=== PATIENT | female | born 1945 | race African-American/Black ===

== ENCOUNTER 2018-07-11 20:17 | Inpatient (IN) | payer MEDICARE ==
--- NOTE | 2018-07-11 22:04 | ER Document Report ---
ED Medical Screen (RME) - General Chief Complaint: Feet Swelling Stated Complaint: FEET SWELLING/COUGH Time Seen by Provider: 07/11/18 22:00 Primary Care Provider: ADRIAN TEMPLETON MD [Primary Care Provider] - Follow up as needed Notes: Patient is a 73-year-old female presents to the emergency department for bilateral feet swelling and shortness of breath for the last 3 months. Patient states she gets more more winded as she moves around her house over the last 3 months. Patient is also complaining of a generalized cough and congestion. Patient states she is noticed bilateral lower extremities were swollen for the last 2 days. Patient is denying any pain in her calf or lower extremities just that they are swollen. Patient denies any history of congestive heart failure GENERAL: Alert, interacts well. No acute distress. EXTREMITIES: Moves all 4 extremities spontaneously. normal radial and dorsalis pedis pulses bilaterally. No cyanosis. Bilateral pitting edema noted mid calf. I have greeted and performed a rapid initial assessment of this patient. A comprehensive ED assessment and evaluation of the patient, analysis of test results and completion of the medical decision making process will be conducted by additional ED providers. This medical record was dictated with voice recognizing software. There may be grammatical, syntax errors that are unintended. TRAVEL OUTSIDE OF THE [place] IN LAST 30 DAYS: No - Related Data Allergies/Adverse Reactions: Penicillins Allergy (Verified 07/11/18 21:53) Past Medical History - Social History Frequency of alcohol use: None Drug Abuse: None - Past Medical History Cardiac Medical History: Reports: Hx Hypertension Denies: Hx Coronary Artery Disease, Hx Heart Attack Pulmonary Medical History: Denies: Hx Asthma, Hx Bronchitis, Hx COPD, Hx Pneumonia Neurological Medical History: Denies: Hx Cerebrovascular Accident, Hx Seizures Renal/ Medical History: Denies: Hx Peritoneal Dialysis Musculoskeltal Medical History: Reports Hx Arthritis Past Surgical History: Denies: Hx Pacemaker - Immunizations Hx Diphtheria, Pertussis, Tetanus Vaccination: No - unsure Physical Exam - Vital signs Vitals: Temp Pulse Resp BP Pulse Ox 97.9 F 111 H 24 H 154/98 H 100 07/11/18 20:45 07/11/18 20:45 07/11/18 20:45 07/11/18 20:45 07/11/18 20:45 Course - Vital Signs Vital signs: Temp Pulse Resp BP Pulse Ox 97.9 F 111 H 24 H 154/98 H 100 07/11/18 20:45 07/11/18 20:45 07/11/18 20:45 07/11/18 20:45 07/11/18 20:45 Doctor's Discharge - Discharge Referrals: ADRIAN TEMPLETON MD [Primary Care Provider] - Follow up as needed
--- NOTE | 2018-07-11 22:51 | RADIOLOGY REPORT (SQ) ---
EXAM DESCRIPTION: XR CHEST 2 VIEWS COMPLETED DATE/TME: 07/11/2018 22:02 CLINICAL HISTORY: SOB COMPARISON: None FINDINGS: Blunted right costophrenic angle and increased opacity at the right lower lung could be secondary to combination of pleural fluid and atelectasis. Indistinctness of pulmonary vessels and reticular opacities compatible with pulmonary edema. There is also mild blunting of the left costophrenic angle. There is scoliosis of the thoracolumbar spine. Cardiac silhouette is within normal limits. There is no pneumothorax. IMPRESSION: Above findings are compatible with cardiac decompensation/pulmonary edema. Recommend follow-up.
[2018-07-11 23:36] LABS: ABSOLUTE EOSINOPHILS # (AUTO) 0.1 10^3/uL (0.0-0.6); ABSOLUTE LYMPHOCYTES (AUTO) 1.7 10^3/uL (0.5-4.7); ABSOLUTE MONOCYTES (AUTO) 0.2 10^3/uL (0.1-1.4); ABSOLUTE NEUT (AUTO) 3.9 10^3/uL (1.7-8.2); BASOPHILS % (AUTO) 0.4 % (0-2); EOSINOPHILS % (AUTO) 1.3 % (0-6); HEMATOCRIT 37.1 % (36.0-47.0); HEMOGLOBIN 11.7 g/dL (12.0-15.5); LYMPHOCYTES % (AUTO) 28.3 % (13-45); MEAN CORPUSCULAR HEMOGLOBIN 24.8 pg (27.0-33.4); MEAN CORPUSCULAR HGB CONC 31.6 g/dL (32.0-36.0); MEAN CORPUSCULAR VOLUME 79 fl (80-97); PLATELET COUNT 282 10^3/uL (150-450); RED BLOOD COUNT 4.72 10^6/uL (3.72-5.28); RED CELL DISTRIBUTION WIDTH 15.4 % (11.5-14.0); TOTAL CELLS COUNTED % (AUTO) 100 %
[2018-07-11 23:45] LABS: APPEARANCE,URINE SLIGHTLY-CLOUDY; BILIRUBIN,URINE NEGATIVE (NEGATIVE); COLOR,URINE AMBER; GLUCOSE, URINE NEGATIVE (NEGATIVE); KETONES,URINE TRACE mg/dL (NEGATIVE); LEUKOCYTE ESTERASE,URINE LARGE (NEGATIVE); NITRITE,URINE NEGATIVE (NEGATIVE); PROTEIN,URINE 100 mg/dL (NEGATIVE)
[2018-07-12 00:03] LABS: ALANINE AMINOTRANSFERASE 55 U/L (9-52); ALBUMIN 3.9 g/dL (3.5-5.0); ALKALINE PHOSPHATASE 95 U/L (38-126); ANION GAP 11 (5-19); ASPARTATE AMINO TRANSFERASE 46 U/L (14-36); BILIRUBIN,DIRECT 0.4 mg/dL (0.0-0.4); BLOOD UREA NITROGEN 20 mg/dL (7-20); CALCIUM 9.9 mg/dL (8.4-10.2); CARBON DIOXIDE 27 mmol/L (22-30); CHLORIDE 106 mmol/L (98-107); GLUCOSE 129 mg/dL (75-110); POTASSIUM 3.3 mmol/L (3.6-5.0); SODIUM 144.2 mmol/L (137-145)
[2018-07-12 00:15] LABS: TROPONIN I 0.018 ng/mL
[2018-07-12] MEDS ORDERED: FUROSEMIDE INJ/PF 40 MG/4 ML SDV IV ONE (03:29)
--- NOTE | 2018-07-12 03:34 | ER Document Report ---
ED General - General Chief Complaint: Feet Swelling Stated Complaint: FEET SWELLING/COUGH Time Seen by Provider: 07/11/18 22:00 Notes: Patient is a 73-year-old female presents to the emergency department for bilateral feet swelling and shortness of breath for the last 3 months. Patient states she gets more more winded as she moves around her house over the last 3 months. Patient is also complaining of a generalized cough and congestion. P atient states she is noticed bilateral lower extremities were swollen for the last 2 days. Patient is denying any pain in her calf or lower extremities just that they are swollen. Patient denies any history of congestive heart failure Patient states she has not taken her Diovan or HCTZ for the last 4 months because "I did not feel like it." Past medical history: Hypertension Medications: Diovan, HCTZ. Allergies: Penicillin Surgical history: None TRAVEL OUTSIDE OF THE [place] IN LAST 30 DAYS: No - Related Data Allergies/Adverse Reactions: Penicillins Allergy (Verified 07/11/18 21:53) Past Medical History - General Information source: Patient - Social History Smoking Status: Never Smoker Frequency of alcohol use: None Drug Abuse: None Family History: Reviewed & Not Pertinent Patient has suicidal ideation: No Patient has homicidal ideation: No - Past Medical History Cardiac Medical History: Reports: Hx Hypertension Denies: Hx Coronary Artery Disease, Hx Heart Attack Pulmonary Medical History: Denies: Hx Asthma, Hx Bronchitis, Hx COPD, Hx Pneumonia Neurological Medical History: Denies: Hx Cerebrovascular Accident, Hx Seizures Renal/ Medical History: Denies: Hx Peritoneal Dialysis Musculoskeletal Medical History: Reports Hx Arthritis Past Surgical History: Denies: Hx Pacemaker - Immunizations Hx Diphtheria, Pertussis, Tetanus Vaccination: No - unsure Review of Systems - Review of Systems Constitutional: denies: Fever EENT: No symptoms reported Cardiovascular: See HPI. denies: Chest pain, Palpitations Respiratory: See HPI Gastrointestinal: No symptoms reported Genitourinary: No symptoms reported Female Genitourinary: No symptoms reported Musculoskeletal: See HPI Skin: See HPI Neurological/Psychological: No symptoms reported Physical Exam - Vital signs Vitals: Temp Pulse Resp BP Pulse Ox 97.9 F 111 H 24 H 154/98 H 100 07/11/18 20:45 07/11/18 20:45 07/11/18 20:45 07/11/18 20:45 07/11/18 20:45 - Notes Notes: GENERAL: Alert, interacts well. No acute distress. HEAD: Normocephalic, atraumatic. EYES: Pupils equal, round, and reactive to light. Extraocular movements intact. ENT: Oral mucosa moist, tongue midline. NECK: Full range of motion. Supple. Trachea midline. LUNGS: Clear to auscultation bilaterally apices, no wheezes or rhonchi. Rales heard bilateral bases. At rest no respiratory distress. HEART: Regular rate and rhythm. No murmur ABDOMEN: Soft, non-tender. Non-distended. Bowel sounds present in all 4 quadrants. EXTREMITIES: Moves all 4 extremities spontaneously, normal radial and dorsalis pedis pulses bilaterally. No cyanosis. +2 pitting edema noted bilateral lower extremities to mid calf BACK: no cervical, thoracic, lumbar midline tenderness. No saddle anesthesia, normal distal neurovascular exam. NEUROLOGICAL: Alert and oriented x3. Normal speech. cranial nerves II through XII grossly intact PSYCH: Normal affect, normal mood. SKIN: Warm, dry, normal turgor. Course - Re-evaluation Re-evalutation: Chest X-Ray 07/11/18 22:02 IMPRESSION: Above findings are compatible with cardiac decompensation/pulmonary edema. Recommend follow-up. Chest/Abdomen CTA 07/12/18 03:38 IMPRESSION: No aortic dissection or aneurysm. No pulmonary embolus. Pleural effusions with cardiomegaly and pulmonary edema. Patient's labs do show a BNP of 5300 with a potassium of 3.3. Patient's chest x -ray as above. 07/12/18 03:[address] Meat [address]. Trent is on-call for Dr. Krueger she is currently paging him. Awaiting his return call to admit the patient. Dr. Trent returns phone call and is requesting a repeat troponin and a CTA. He is requesting to call him back after these test results. 07/12/18 05:27 Patient's troponin is downtrending from 0.018 to 0.012. Patient CTA shows no signs of pulmonary embolus or aneurysm. Discussed this again with Dr. Trent who is requesting oral potassium replacement at this time. He is requesting patient be admitted to [facility]. Patient stable for admission, new onset congestive heart failure. 07/12/18 06:55 EKG shows a sinus tachycardia at 111, QTc 468, LVH, no ST segment elevations or depressions noted. - Vital Signs Vital signs: Temp Pulse Resp BP Pulse Ox 98.1 F 111 H 25 H 145/94 H 96 07/12/18 03:00 07/11/18 20:45 07/12/18 05:00 07/12/18 04:01 07/12/18 04:01 - Laboratory Result Diagrams: 07/11/18 23:04 07/11/18 23:04 Laboratory results interpreted by me: 07/11/18 07/11/18 07/11/18 23:04 23:04 23:04 Hgb 11.7 L MCV 79 L MCH 24.8 L MCHC 31.6 L RDW 15.4 H D-Dimer Potassium 3.3 L Glucose 129 H Magnesium AST 46 H ALT 55 H NT-Pro-B Natriuret Pep 5300 H Urine Protein Urine Ketones Urine Urobilinogen Ur Leukocyte Esterase 07/11/18 07/11/18 07/11/18 23:04 23:04 23:04 Hgb MCV MCH MCHC RDW D-Dimer 0.85 H Potassium Glucose Magnesium 2.4 H AST ALT NT-Pro-B Natriuret Pep Urine Protein 100 H Urine Ketones TRACE H Urine Urobilinogen 4.0 H Ur Leukocyte Esterase LARGE H Discharge - Discharge Clinical Impression: Congestive heart failure Qualifiers: Heart failure type: unspecified Heart failure chronicity: acute Qualified Code(s): I50.9 - Heart failure, unspecified Condition: Good Disposition: ADMITTED INPATIENT Admitting Provider: [facility] Unit Admitted: [facility]
--- NOTE | 2018-07-12 05:15 | RADIOLOGY REPORT (SQ) ---
CLINICAL HISTORY: SOB X 3MONTHS / BLE SWELLING X 3DAYS / HTN COMPARISON: None. TECHNIQUE: CT CHEST ANGIOGRAPHY WITHOUT THEN WITH IV CONTRAST on 07/12/2018 3:38 AM CDT. MIPS reconstructions were generated. This exam was performed according to our departmental dose-optimization program, which includes automated exposure control, adjustment of the mA and/or kV according to patient size and/or use of iterative reconstruction technique. MIP images were generated. FINDINGS: Thoracic aorta is normal in course and caliber without aneurysm or dissection. Pulmonary arteries are adequately opacified without acute or chronic filling defects. The heart is mildly enlarged. There is no pericardial effusion. Intrathoracic lymph nodes are not enlarged. There is a small left pleural effusion. There is a moderate right pleural effusion. Central airways are patent. There is interlobular septal thickening with patchy groundglass opacities throughout both lungs. There are no acute abnormalities within the limited images of the upper abdomen. There are no acute osseous findings. No suspicious bony lesions. IMPRESSION: No aortic dissection or aneurysm. No pulmonary embolus. Pleural effusions with cardiomegaly and pulmonary edema.
[2018-07-12] MEDS ORDERED: POTASSIUM CHLORIDE 10 MEQ CAPSULE.ER PO ONE (05:25)
[2018-07-12] MEDS ORDERED: ACETAMINOPHEN 325 MG TABLET PO PRN (07:03)
[2018-07-12] MEDS: ENOXAPARIN SODIUM INJ 40 MG/0.4 ML DISP.SYRIN SUBCUT SCH (09:13)
--- NOTE | 2018-07-12 10:13 | PDOC H&P ---
History of Present Illness Admission Date/PCP: 07/12/18 06:18 CHERRI BUTCHER MD Patient complains of: Feet swelling and shortness of the breath History of Present Illness: ALBINA FRANK is a 73 year old female This is a 73-year-old female patient of Dr. Sharp with history of hypertension's noncompliance not taking the medications put him almost 2 months came to the emergency department with increasing shortness of breath patient laid down since last 1 or 2 weeks and also increasing the leg swellings Patient is denied any history of heart disease Patients denied any other medical problems except for high blood pressure In the emergency department patient initial work-up was all stable except the NT BNP was 5000 Patient's potassium was low patient underwent for the CT angiogram which did not show any acute PE but supposed to pulmonary edema cardiomegaly Patient was given IV Lasix When I saw the patient's feel better patient denied any chest pain Past Medical History Cardiac Medical History: Reports: Hypertension Denies: Coronary Artery Disease, Myocardial Infarction Pulmonary Medical History: Denies: Asthma, Bronchitis, Chronic Obstructive Pulmonary Disease (COPD), Pneumonia Neurological Medical History: Denies: Seizures Musculoskeltal Medical History: Reports: Arthritis Hematology: Denies: Anemia Past Surgical History Past Surgical History: Denies: Pacemaker Social History Smoking Status: Never Smoker Frequency of Alcohol Use: None Hx Recreational Drug Use: No Drugs: None Hx Prescription Drug Abuse: No - Advance Directive Resuscitation Status: Full Code Family History Family History: Reviewed & Not Pertinent Parental Family History Reviewed: Yes Children Family History Reviewed: Yes Sibling(s) Family History Reviewed.: Yes Medication/Allergy Home Medications: Diovan Hct 320-25 mg Tablet PO DAILY 03/06/11 Pravastatin Sodium PO DAILY 03/06/11 Allergies/Adverse Reactions: Penicillins Allergy (Verified 07/11/18 21:53) Review of Systems Constitutional: ABSENT: chills, fever(s), headache(s), weight gain, weight loss Eyes: ABSENT: visual disturbances Ears: ABSENT: hearing changes Cardiovascular: ABSENT: chest pain, dyspnea on exertion, edema, orthropnea, palpitations Respiratory: ABSENT: cough, hemoptysis Gastrointestinal: ABSENT: abdominal pain, constipation, diarrhea, hematemesis, hematochezia, nausea, vomiting Genitourinary: ABSENT: dysuria, hematuria Musculoskeletal: ABSENT: joint swelling Integumentary: ABSENT: rash, wounds Neurological: ABSENT: abnormal gait, abnormal speech, confusion, dizziness, focal weakness, syncope Psychiatric: ABSENT: anxiety, depression, homidical ideation, suicidal ideation Endocrine: ABSENT: cold intolerance, heat intolerance, menstrual abnormalities, polydipsia, polyuria Hematologic/Lymphatic: ABSENT: easy bleeding, easy bruising, lymphadenopathy Physical Exam Vital Signs: Temp Pulse Resp BP Pulse Ox 97.4 F 111 H 22 H 152/98 H 98 07/12/18 07:46 07/12/18 07:46 07/12/18 07:46 07/12/18 07:46 07/12/18 07:46 Intake & Output 07/11/18 07/12/18 07/13/18 06:59 06:59 06:59 Weight 78.1 kg 76.6 kg General appearance: PRESENT: no acute distress, well-developed, well-nourished Head exam: PRESENT: atraumatic, normocephalic Eye exam: PRESENT: conjunctiva pink, EOMI, PERRLA. ABSENT: scleral icterus Ear exam: PRESENT: normal external ear exam Mouth exam: PRESENT: moist, tongue midline Neck exam: PRESENT: full ROM. ABSENT: carotid bruit, JVD, lymphadenopathy, thyromegaly Respiratory exam: PRESENT: decreased breath sounds Cardiovascular exam: PRESENT: RRR. ABSENT: diastolic murmur, rubs, systolic murmur Vascular exam: PRESENT: normal capillary refill GI/Abdominal exam: PRESENT: normal bowel sounds, soft. ABSENT: distended, guarding, mass, organolmegaly, rebound, tenderness Rectal exam: PRESENT: deferred Extremities exam: PRESENT: pedal edema Musculoskeletal exam: PRESENT: ambulatory Neurological exam: PRESENT: alert, awake, oriented to person, oriented to place, oriented to time, oriented to situation, CN II-XII grossly intact. ABSENT: motor sensory deficit Psychiatric exam: PRESENT: appropriate affect, normal mood. ABSENT: homicidal ideation, suicidal ideation Skin exam: PRESENT: dry, intact, warm. ABSENT: cyanosis, rash Results Laboratory Results: 07/11/18 23:04 07/11/18 23:04 07/11/18 07/11/18 07/11/18 23:04 23:04 23:04 WBC 6.0 RBC 4.72 Hgb 11.7 L Hct 37.1 MCV 79 L MCH 24.8 L MCHC 31.6 L RDW 15.4 H Plt Count 282 Seg Neutrophils % 66.0 Lymphocytes % 28.3 Monocytes % 4.0 Eosinophils % 1.3 Basophils % 0.4 Absolute Neutrophils 3.9 Absolute Lymphocytes 1.7 Absolute Monocytes 0.2 Absolute Eosinophils 0.1 Absolute Basophils 0.0 Sodium 144.2 Potassium 3.3 L Chloride 106 Carbon Dioxide 27 Anion Gap 11 BUN 20 Creatinine 0.68 Est GFR ( Amer) > 60 Est GFR (Non-Af Amer) > 60 Glucose 129 H Calcium 9.9 Magnesium Total Bilirubin 1.0 AST 46 H ALT 55 H Alkaline Phosphatase 95 Total Protein 7.0 Albumin 3.9 Urine Color FRED Urine Appearance SLIGHTLY-CLOUDY Urine pH 5.0 Ur Specific [place] 1.030 Urine Protein 100 H Urine Glucose (UA) NEGATIVE Urine Ketones TRACE H Urine Blood NEGATIVE Urine Nitrite NEGATIVE Ur Leukocyte Esterase LARGE H Urine WBC (Auto) 7 Urine RBC (Auto) 2 07/11/18 23:04 WBC RBC Hgb Hct MCV MCH MCHC RDW Plt Count Seg Neutrophils % Lymphocytes % Monocytes % Eosinophils % Basophils % Absolute Neutrophils Absolute Lymphocytes Absolute Monocytes Absolute Eosinophils Absolute Basophils Sodium Potassium Chloride Carbon Dioxide Anion Gap BUN Creatinine Est GFR ( Amer) Est GFR (Non-Af Amer) Glucose Calcium Magnesium 2.4 H Total Bilirubin AST ALT Alkaline Phosphatase Total Protein Albumin Urine Color Urine Appearance Urine pH Ur Specific [place] Urine Protein Urine Glucose (UA) Urine Ketones Urine Blood Urine Nitrite Ur Leukocyte Esterase Urine WBC (Auto) Urine RBC (Auto) 07/11/18 07/12/18 23:04 04:05 Troponin I 0.018 0.012 NT-Pro-B Natriuret Pep 5300 H Impressions: Chest X-Ray 07/11/18 22:02 IMPRESSION: Above findings are compatible with cardiac decompensation/pulmonary edema. Recommend follow-up. Chest/Abdomen CTA 07/12/18 03:38 IMPRESSION: No aortic dissection or aneurysm. No pulmonary embolus. Pleural effusions with cardiomegaly and pulmonary edema. Assessment & Plan - Diagnosis (1) Congestive heart failure Qualifiers: Heart failure type: unspecified Heart failure chronicity: acute Qualified Code(s): I50.9 - Heart failure, unspecified Is this a current diagnosis for this admission?: Yes Plan: Continues to IV Lasix This is a new onset of the heart failure Consult the cardiology (2) Hypertension Qualifiers: Hypertension type: unspecified Qualified Code(s): I10 - Essential (primary) hypertension Is this a current diagnosis for this admission?: Yes Plan: Continues to current medications (3) Pulmonary edema Qualifiers: Chronicity: acute Qualified Code(s): J81.0 - Acute pulmonary edema Is this a current diagnosis for this admission?: Yes Plan: Patient CT angiogram is negative for PE Most likely her heart failure due to the uncontrolled hypertension's and noncompliance (4) Lower extremity edema Is this a current diagnosis for this admission?: Yes Plan: Due to the above conditions we also get the ultrasound for the lower extremities - Time Time Spent: 50 to 70 Minutes Medications reviewed and adjusted accordingly: Yes Anticipated discharge: Home Within: Other - Inpatient Certification Based on my medical assessment, after consideration of the patient's comorbid ities, presenting symptoms, or acuity I expect that the services needed warrant INPATIENT care.: Yes I certify that my determination is in accordance with my understanding of Medicare's requirements for reasonable and necessary INPATIENT services [42 CFR 412.3e].: Yes Medical Necessity: Need Close Monitoring Due to Risk of Patient Decompensation Post Hospital Care: D/C Appeals Assistant Documentation - Plan Summary Plan Summary: Continues to current medications
--- NOTE | 2018-07-12 11:16 | EKG REPORT ---
SEVERITY:- ABNORMAL ECG - SINUS TACHYCARDIA PROBABLE LVH WITH SECONDARY REPOL ABNRM : Confirmed by: Ioana Palacios 12-Jul-2018 11:15:56
--- NOTE | 2018-07-12 11:51 | RADIOLOGY REPORT (SQ) ---
EXAM DESCRIPTION: VENOUS BILATERAL LOWER COMPLETED DATE/TIME: 07/12/2018 11:25 am REASON FOR STUDY: edema r/o DVT COMPARISON: None. TECHNIQUE: Dynamic and static dotosn scale and color images acquired of both lower extremity venous sy stems. Selected spectral images acquired with additional compression and augmentation maneuvers. Imag es stored on PACS. LIMITATIONS: None. FINDINGS: RIGHT LEG COMMON FEMORAL AND FEMORAL: Normal phasicity, compression and augmentation. No visualized echogenic m aterial on dotson scale. No defects on color images. POPLITEAL: Normal compression and augmentation. No visualized echogenic material on dotson scale. No de fects on color images. CALF VESSELS: Normal compression and augmentation. No visualized echogenic material on dotson scale. No defects on color image. GSV AND SSV: Normal compression. No visualized echogenic material on dotson scale. No defects on color images. ANY DEEP VENOUS INSUFFICIENCY: Not evaluated. ANY EVIDENCE OF POPLITEAL CYST: No. OTHER: No other significant finding. LEFT LEG COMMON FEMORAL AND FEMORAL: Normal phasicity, compression and augmentation. No visualized echogenic m aterial on dotson scale. No defects on color images. POPLITEAL: Normal compression and augmentation. No visualized echogenic material on dotson scale. No de fects on color images. CALF VESSELS: Normal compression and augmentation. No visualized echogenic material on dotson scale. No defects on color images. GSV AND SSV: Normal compression. No visualized echogenic material on dotson scale. No defects on color images. ANY DEEP VENOUS INSUFFICIENCY: Not evaluated. ANY EVIDENCE POPLITEAL CYST: 4.5 cm popliteal cyst. OTHER: No other significant finding. IMPRESSION: NO EVIDENCE DVT OR SVT IN EITHER LEG. 4.5 cm popliteal cyst. TECHNICAL DOCUMENTATION: JOB ID: [id number] All Rights Reserved Reading location - IP/workstation name: [email or web address]
[2018-07-12 12:36] LABS: CREATINE KINASE MB 0.64 ng/mL (<4.55); TROPONIN I 0.015 ng/mL
[2018-07-12] MEDS: METOPROLOL SUCCINATE 25 MG TAB.SR.24H PO SCH ×2 (13:09→21:10)
[2018-07-12] MEDS: FUROSEMIDE INJ/PF 20 MG/2 ML SDV IV SCH ×2 (14:04→21:10)
[2018-07-12] MEDS: VALSARTAN 80 MG TABLET PO SCH ×2 (14:04→21:10)
--- NOTE | 2018-07-12 17:21 | PDOC CONSULTATION ---
Consultation-Blank Consultation: CARDIOLOGY CONSULTATION by Dr. Norma Hernandez on 07/12/2018. Patient seen at 11 AM. 60 minutes spent on this patient with more than 50% of time spent in direct patient care. REASON FOR CONSULTATION: Patient with leg edema shortness of breath PND and orthopnea symptoms. CONSULT REQUESTING PHYSICIAN: Dr. Melissa Trent HISTORY PRESENT ILLNESS: Patient is a pleasant 73-year-old Afro-[place]i female with a known history of hypertension, states that she stopped her Diovan and for her blood pressure about 4 months ago. The patient states that in the past she is to have some mild leg edema which would occur mostly when she is ambulatory into is the end of the day and the edema would subside when she woke up in the morning and she would find that the edema had completely resolved. But since the past 1 week the patient has been having episodes of orthopnea, episodes of PND and dyspnea on exertion to rest shortness of breath. She has also noticed increasing leg edema. She denies palpitations or chest pain or discomfort. She has no TIA CVA symptoms. There is no dizziness or near syncope or syncopal episodes. She also states that she has been told that she snores in the sleep, but there is no corroborating witnessed to see if the patient did stop breathing in her sleep. She but she states that she does have frequent nightmares, and also after a night's sleep she in the morning does not feel rested. She most likely has sleep apnea, and has not been diagnosed. PAST MEDICAL HISTORY: Is positive for hypertension. Negative for diabetes mellitus or thyroid disease. There is no history of asthma or COPD. There is no history of a pulmonary embolism. The patient has symptoms suggestive of sleep apnea, but has not had a sleep study. She has no history of TIA or CVA. There is no history of chronic kidney disease. There is no history of anxiety or depression. PAST SURGICAL HISTORY: She has had no surgeries done. ALLERGIES: She is allergic to penicillin. FAMILY HISTORY: Is positive for hypertension. Negative for coronary artery disease. DISPOSITION: The patient is a full code. is her surrogate healthcare decision maker. SOCIAL HISTORY: The patient does not smoke, has never smoked, and is no history of EtOH abuse. REVIEW SYSTEMS: CONSTITUTIONAL: Denies any fever chills or rigors. Complains of generalized fatigue and generalized weakness since the last 1 week. HEAD: No history of headaches or head injury. EYES: No history of amblyopia diplopia. No history of amaurosis fugax. EARS: No severe hearing loss. No history of tinnitus. No history of recurrent ear infections. NOSE: No history of hayfever. No history of nosebleeds. No history of nasal polyps. MOUTH: No history of altered taste sensation. No bleeding from the gums. THROAT: No history of odynophagia or dysphagia. SKIN: No history of pruritus. No history of yellowish discoloration of the skin. No history of eczema. NECK: No history of swelling in the neck. No neck pain. LUNGS: No history of cough or sputum production or wheezing. No history of asthma or COPD. Symptoms suggestive of sleep apnea as mentioned earlier. The patient has yet to have a sleep study, but this will be arranged as an outpatient. Although no history of her pulmonary embolism. No history of pleuritic chest pain no history of hemoptysis. CARDIAC: History of hypertension patient is not taking blood pressure medication for 4 months. No history of VA. No history of angina. No history of coronary artery disease. No prior history of congestive heart failure. The patient's description of 1 week symptoms are suggestive of biventricular failure. There is no palpitations or syncope. There is no history of rheumatic fever. There is no history of coronary heart disease. ENDOCRINE: No history of diabetes mellitus or thyroid disease. No history of polydipsia polyuria. No history of heat or cold intolerance. No history of hirsutism. No history of excessive sweating. RENAL: No history of chronic kidney disease. No symptoms a UTI. No history of hematuria pyuria or dysuria. MUSCULOSKELETAL: Denies arthritis or collagen vascular disease. GI: Denies any history of GERD or GI bleed. No history of altered bowel movements. No history of fatty food intolerance. No history of jaundice or cirrhosis. No abdominal pain. PATTERN PUNCHER: No history of TIA CVA. No history of headaches migraines or seizures. PSYCHIATRIC: No history of anxiety depression. No history of homicidal ideation. No history of suicidal ideation. METABOLIC: History of obesity. No history of gout. No history of hyperlipidemia, [her lipid status has not been checked in some while.]. VASCULAR: NO HISTORY OF CALF OR BUTTOCK CLAUDICATION. NO HISTORY OF DVT. HEMATOLOGICAL: NO HISTORY OF SICKLE CELL ANEMIA. NO HISTORY OF ANEMIA. NO HISTORY OF HEMATOLOGICAL DISORDERS. NO HISTORY OF BLOOD DYSCRASIAS. NO HISTORY OF BLEEDING DIATHESIS OR CLOTTING DISORDERS. PHYSICAL EXAMINATION: The patient is slightly overweight. At present in no acute distress although she has orthopnea. She is well-groomed. Selected Entries 07/12/18 07/12/18 07:46 11:08 Temperature 97.4 F 97.9 F Temperature Oral Oral Source Pulse Rate 111 H 103 H Respiratory 22 H 21 H Rate Blood Pressure 152/98 H 140/91 H Blood Pressure 116 107 Mean BP Location Left Arm Right Arm BP Position Supine Supine O2 Sat by Pulse 98 96 Oximetry Oxygen Delivery Room Air Room Air Method HEAD: Is atraumatic normocephalic. EYES: Pupils equal round regular reactive to light and accommodation. Extraocular movements are normal. There is no conjunctival pallor. There is no scleral icterus. EARS: Tympanic membranes are not intact. External canals are clear. NOSE: There is no deviated nasal septum. There is no inflammation of the nasal mucous membrane. MOUTH: There is no ulcers in the mouth. There is no bleeding from the gums. Mucous membranes of mouth are moist tongue is moist. THROAT: There is no redness of the oropharynx. There is no exudates. SKIN: There is no skin rashes skin lesions. There is no particular ecchymosis. NECK: Is supple. There is mild JVD present. Carotids are equal there is no bruits. There is no lymphadenopathy. There is no goiter. There is no accessory muscle respiration use. Trachea central. LUNGS: Shows bibasilar fine bilateral rales of CHF. There is no chest wall tenderness. There is no rhonchi or wheezing. HEART: S1-S2 is heard. There is no S3 gallop. There is no S4 gallop. There is murmur of mitral regurgitation and tricuspid regurgitation present. There is no rub. ABDOMEN: Is soft. Nontender. There is no hepatosplenomegaly. Bowel sounds are well heard. There is no tender areas masses. EXTREMITIES: Femorals are diminished there is no femoral bruits leg pulses are diminished. There is no 1+ edema bilaterally. There is no DVT is cellulitis. There is no cyanosis or clubbing. There is no calf tenderness. PATTERN PUNCHER: The patient is conscious awake alert oriented x3 with no focal deficits. PSYCHIATRIC: The patient judgment insight are intact her affect is normal. Current Medications Generic Name Dose Route Start Last Admin Trade Name Fremarcel PRN Reason Stop Dose Admin Acetaminophen 650 mg 07/12/18 07:03 Tylenol 325 Mg Tablet PO 08/11/18 07:02 Q4HP PRN FOR PAIN OR TEMP Enoxaparin Sodium 40 mg 07/12/18 10:00 07/12/18 09:13 Lovenox Inj 40 Mg/0.4 Ml Disp.Syrin SUBCUT 08/11/18 09:59 40 mg DAILY CORNELL Administration Furosemide 20 mg 07/12/18 14:00 07/12/18 14:04 Lasix Inj/Pf 20 Mg/2 Ml Sdv IV 08/11/18 13:59 20 mg Q8 CORNELL Administration Metoprolol Succinate 25 mg 07/12/18 13:00 07/12/18 13:09 Toprol Xl 25 Mg Tab.Sr PO 08/11/18 12:59 25 mg Q12 CORNELL Administration Started by me after consult. Valsartan 80 mg 07/12/18 14:00 07/12/18 14:04 Diovan 80 Mg Tablet PO 08/11/18 13:59 80 mg Q12 CORNELL Administration Started by me after consult Discontinued Medications Generic Name Dose Route Start Last Admin Trade Name Evanq PRN Reason Stop Dose Admin Furosemide 40 mg 07/12/18 03:29 07/12/18 03:59 Lasix Inj/Pf 40 Mg/4 Ml Sdv IV 07/12/18 03:30 40 mg NOW ONE Administration Potassium Chloride 40 meq 07/12/18 05:25 07/12/18 05:40 Klor-Con 10 Meq Capsule Er PO 07/12/18 05:26 40 meq NOW ONE Administration No Home Medications 07/12/18 Labs- Last Values WBC 6.0 10^3/uL (4.0-10.5) 07/11/18 23:04 RBC 4.72 10^6/uL (3.72-5.28) 07/11/18 23:04 Hgb 11.7 g/dL (12.0-15.5) L 07/11/18 23:04 Hct 37.1 % (36.0-47.0) 07/11/18 23:04 MCV 79 fl (80-97) L 07/11/18 23:04 MCH 24.8 pg (27.0-33.4) L 07/11/18 23:04 MCHC 31.6 g/dL (32.0-36.0) L 07/11/18 23:04 RDW 15.4 % (11.5-14.0) H 07/11/18 23:04 Plt Count 282 10^3/uL (150-450) 07/11/18 23:04 Seg Neutrophils % 66.0 % (42-78) 07/11/18 23:04 Lymphocytes % 28.3 % (13-45) 07/11/18 23:04 Monocytes % 4.0 % (3-13) 07/11/18 23:04 Eosinophils % 1.3 % (0-6) 07/11/18 23:04 Basophils % 0.4 % (0-2) 07/11/18 23:04 Absolute Neutrophils 3.9 10^3/uL (1.7-8.2) 07/11/18 23:04 Absolute Lymphocytes 1.7 10^3/uL (0.5-4.7) 07/11/18 23:04 Absolute Monocytes 0.2 10^3/uL (0.1-1.4) 07/11/18 23:04 Absolute Eosinophils 0.1 10^3/uL (0.0-0.6) 07/11/18 23:04 Absolute Basophils 0.0 10^3/uL (0.0-0.2) 07/11/18 23:04 D-Dimer 0.85 ug/mL (0.00-0.50) H 07/11/18 23:04 Sodium 144.2 mmol/L (137-145) 07/11/18 23:04 Potassium 3.3 mmol/L (3.6-5.0) L 07/11/18 23:04 Chloride 106 mmol/L (98-107) 07/11/18 23:04 Carbon Dioxide 27 mmol/L (22-30) 07/11/18 23:04 Anion Gap 11 (5-19) 07/11/18 23:04 BUN 20 mg/dL (7-20) 07/11/18 23:04 Creatinine 0.68 mg/dL (0.52-1.25) 07/11/18 23:04 Est GFR ( Amer) > 60 (>60) 07/11/18 23:04 Est GFR (Non-Af Amer) > 60 (>60) 07/11/18 23:04 Glucose 129 mg/dL (75-110) H 07/11/18 23:04 Calcium 9.9 mg/dL (8.4-10.2) 07/11/18 23:04 Magnesium 2.4 mg/dL (1.6-2.3) H 07/11/18 23:04 Total Bilirubin 1.0 mg/dL (0.2-1.3) 07/11/18 23:04 Direct Bilirubin 0.4 mg/dL (0.0-0.4) 07/11/18 23:04 Neonat Total Bilirubin Not Reportable 07/11/18 23:04 Neonat Direct Bilirubin Not Reportable 07/11/18 23:04 Neonat Indirect Bili Not Reportable 07/11/18 23:04 AST 46 U/L (14-36) H 07/11/18 23:04 ALT 55 U/L (9-52) H 07/11/18 23:04 Alkaline Phosphatase 95 U/L (38-126) 07/11/18 23:04 Creatine Kinase 73 U/L (30-135) 07/12/18 11:42 CK-MB (CK-2) 0.64 ng/mL (<4.55) 07/12/18 11:42 Troponin I 0.015 ng/mL 07/12/18 11:42 NT-Pro-B Natriuret Pep 5300 pg/mL (5-900) H 07/11/18 23:04 Total Protein 7.0 g/dL (6.3-8.2) 07/11/18 23:04 Albumin 3.9 g/dL (3.5-5.0) 07/11/18 23:04 TSH 1.66 uIU/mL (0.47-4.68) 07/12/18 11:42 Urine Color FRED 07/11/18 23:04 Urine Appearance SLIGHTLY-CLOUDY 07/11/18 23:04 Urine pH 5.0 (5.0-9.0) 07/11/18 23:04 Ur Specific Martell 1.030 07/11/18 23:04 Urine Protein 100 mg/dL (NEGATIVE) H 07/11/18 23:04 Urine Glucose (UA) NEGATIVE mg/dL (NEGATIVE) 07/11/18 23:04 Urine Ketones TRACE mg/dL (NEGATIVE) H 07/11/18 23:04 Urine Blood NEGATIVE (NEGATIVE) 07/11/18 23:04 Urine Nitrite NEGATIVE (NEGATIVE) 07/11/18 23:04 Urine Bilirubin NEGATIVE (NEGATIVE) 07/11/18 23:04 Urine Urobilinogen 4.0 mg/dL (<2.0) H 07/11/18 23:04 Ur Leukocyte Esterase LARGE (NEGATIVE) H 07/11/18 23:04 Urine WBC (Auto) 7 /HPF 07/11/18 23:04 Urine RBC (Auto) 2 /HPF 07/11/18 23:04 U Hyaline Cast (Auto) 7 /LPF 07/11/18 23:04 Urine Bacteria (Auto) TRACE /HPF 07/11/18 23:04 Squamous Epi Cells Auto 6 /HPF 07/11/18 23:04 Urine Mucus (Auto) MANY /LPF 07/11/18 23:04 Urine Ascorbic Acid NEGATIVE (NEGATIVE) 07/11/18 23:04 Chest X-Ray 07/11/18 22:02 IMPRESSION: Above findings are compatible with cardiac decompensation/pulmonary edema. Recommend follow-up. There is left ventricular enlargement, and also on the lateral view suggestive of right ventricular enlargement. Venous Doppler Study 07/12/18 00:00 IMPRESSION: NO EVIDENCE DVT OR SVT IN EITHER LEG. 4.5 cm popliteal cyst. Chest/Abdomen CTA 07/12/18 03:38 IMPRESSION: No aortic dissection or aneurysm. No pulmonary embolus. Pleural effusions with cardiomegaly and pulmonary edema. EKG: Sinus tachycardia. LVH with strain pattern. IMPRESSIONS/RECOMMENDATION: 1. Acute biventricular systolic heart failure.: [Acute systolic left ventricular and right ventricular failure]. Most likely this is due to uncontrolled hypertension due to the patient being noncompliant with medication and not taking it. We will start the patient on Toprol-XL 25 mg p.o. every 12 hours and increase as tolerated. Also start the patient on Diovan 80 mg p.o. every 12 hours. Continue Lasix but will watch for recurrent hypokalemia. Later we will get an echocardiogram to assess left ventricular rate regular ejection fractions and valvular disease. Note the lateral view of the chest x-ray suggest also right ventricular enlargement. 2. Hypertension not very well controlled: History of the patient having stopped antihypertensives about 4 months ago. Hence resumed the patient's antihypertensive medication. 3. Hypokalemia: Replace patient potassium is being done 4. Symptoms of and some clinical findings of obstructive sleep apnea on exam. Would recommend outpatient sleep study. In the meantime would use empiric BiPAP therapy at night 5.? Lipid status: We will check lipids in the a.m. 6. Systolic murmur: Most likely has significant mitral and tricuspid regurgitation. This may be a manifestation of untreated blood pressure. Importance of compliance with the taking blood pressure medications regularly discussed with the patient. The risks of congestive heart failure, arrhythmia, myocardial infarction, stroke, and even sudden have been discussed with the patient detail if blood pressure has untreated. Medications reviewed medications added. Management plan, as plan above, discussed with Dr. Trent. Medical decision making is at present of high complexity.
[2018-07-12 20:12] LABS: CREATINE KINASE MB 0.69 ng/mL (<4.55); TROPONIN I 0.017 ng/mL
[2018-07-13 02:06] LABS: CREATINE KINASE MB 0.63 ng/mL (<4.55); TROPONIN I 0.016 ng/mL
[2018-07-13] MEDS: FUROSEMIDE INJ/PF 20 MG/2 ML SDV IV SCH ×3 (05:09→21:39)
[2018-07-13 07:38] LABS: CHOLESTEROL 212.71 mg/dL (0-200); TRIGLYCERIDES 86 mg/dL (<150)
[2018-07-13 07:49] LABS: DIRECT LDL 132 mg/dL (<100)
[2018-07-13 09:01] LABS: ANION GAP 11 (5-19); BLOOD UREA NITROGEN 15 mg/dL (7-20); CALCIUM 9.8 mg/dL (8.4-10.2); CARBON DIOXIDE 27 mmol/L (22-30); CHLORIDE 107 mmol/L (98-107); GLUCOSE 134 mg/dL (75-110); POTASSIUM 3.5 mmol/L (3.6-5.0); SODIUM 144.7 mmol/L (137-145)
--- NOTE | 2018-07-13 10:30 | PDOC PROGRESS REPORT ---
Subjective Progress Note for:: 07/13/18 Subjective:: Patient is currently doing much better Patient is denied any chest pain Patient's breathing is much better No other events happens Reason For Visit: SHORTNESS OF BREATH Physical Exam Vital Signs: Temp Pulse Resp BP Pulse Ox 98.5 F 91 18 137/82 H 99 07/13/18 07:11 07/13/18 07:11 07/13/18 07:11 07/13/18 07:11 07/13/18 07:11 Intake & Output 07/12/18 07/13/18 07/14/18 06:59 06:59 06:59 Intake Total 722 Balance 722 Weight 78.1 kg 77.3 kg General appearance: PRESENT: no acute distress, well-developed, well-nourished Head exam: PRESENT: atraumatic, normocephalic Eye exam: PRESENT: conjunctiva pink, EOMI, PERRLA. ABSENT: scleral icterus Ear exam: PRESENT: normal external ear exam Mouth exam: PRESENT: moist, tongue midline Neck exam: PRESENT: full ROM. ABSENT: carotid bruit, JVD, lymphadenopathy, thyromegaly Respiratory exam: PRESENT: clear to auscultation rafaela Cardiovascular exam: PRESENT: RRR. ABSENT: diastolic murmur, rubs, systolic murmur Vascular exam: PRESENT: normal capillary refill GI/Abdominal exam: PRESENT: normal bowel sounds, soft. ABSENT: distended, guard ing, mass, organolmegaly, rebound, tenderness Rectal exam: PRESENT: deferred Extremities exam: PRESENT: pedal edema Musculoskeletal exam: PRESENT: ambulatory Neurological exam: PRESENT: alert, awake, oriented to person, oriented to place, oriented to time, oriented to situation, CN II-XII grossly intact. ABSENT: motor sensory deficit Psychiatric exam: PRESENT: appropriate affect, normal mood. ABSENT: homicidal ideation, suicidal ideation Skin exam: PRESENT: dry, intact, warm. ABSENT: cyanosis, rash Results Laboratory Results: 07/11/18 23:04 07/13/18 06:15 07/12/18 07/13/18 07/13/18 11:42 06:15 06:15 Sodium 144.7 Potassium 3.5 L Chloride 107 Carbon Dioxide 27 Anion Gap 11 BUN 15 Creatinine 0.67 Est GFR ( Amer) > 60 Est GFR (Non-Af Amer) > 60 Glucose 134 H Calcium 9.8 Triglycerides 86 Cholesterol 212.71 H LDL Cholesterol Direct 132 H VLDL Cholesterol 17.0 HDL Cholesterol 57 TSH 1.66 07/11/18 07/12/18 07/12/18 23:04 04:05 11:42 Creatine Kinase 73 CK-MB (CK-2) Troponin I 0.018 0.012 NT-Pro-B Natriuret Pep 5300 H 07/12/18 07/12/18 07/12/18 11:42 18:56 19:03 Creatine Kinase 82 CK-MB (CK-2) 0.64 0.69 Troponin I 0.015 0.017 NT-Pro-B Natriuret Pep 07/13/18 07/13/18 01:07 01:07 Creatine Kinase 81 CK-MB (CK-2) 0.63 Troponin I 0.016 NT-Pro-B Natriuret Pep Impressions: Chest X-Ray 07/11/18 22:02 IMPRESSION: Above findings are compatible with cardiac decompensation/pulmonary edema. Recommend follow-up. Venous Doppler Study 07/12/18 00:00 IMPRESSION: NO EVIDENCE DVT OR SVT IN EITHER LEG. 4.5 cm popliteal cyst. Chest/Abdomen CTA 07/12/18 03:38 IMPRESSION: No aortic dissection or aneurysm. No pulmonary embolus. Pleural effusions with cardiomegaly and pulmonary edema. Assessment & Plan - Diagnosis (1) Congestive heart failure Qualifiers: Heart failure type: unspecified Heart failure chronicity: acute Qualified Code(s): I50.9 - Heart failure, unspecified Is this a current diagnosis for this admission?: Yes Plan: Continues to IV Lasix Follow with the cardiology (2) Hypertension Qualifiers: Hypertension type: unspecified Qualified Code(s): I10 - Essential (primary) hypertension Is this a current diagnosis for this admission?: Yes Plan: Continues to current medications (3) Pulmonary edema Qualifiers: Chronicity: acute Qualified Code(s): J81.0 - Acute pulmonary edema Is this a current diagnosis for this admission?: Yes Plan: Currently resolved (4) Lower extremity edema Is this a current diagnosis for this admission?: Yes Plan: Due to the above conditions we also get the ultrasound for the lower extremities - Time Time Spent with patient: 15-24 minutes Medications reviewed and adjusted accordingly: Yes Anticipated discharge: Home Within: Other - Plan Summary Plan Summary: cont curr med
[2018-07-13] MEDS ORDERED: POTASSIUM CHLORIDE 10 MEQ CAPSULE.ER PO ONE (11:00)
[2018-07-13] MEDS: VALSARTAN 80 MG TABLET PO SCH ×2 (11:02→21:40)
[2018-07-13] MEDS: ENOXAPARIN SODIUM INJ 40 MG/0.4 ML DISP.SYRIN SUBCUT SCH (11:03)
[2018-07-13] MEDS: METOPROLOL SUCCINATE 25 MG TAB.SR.24H PO SCH ×2 (11:03→21:39)
--- NOTE | 2018-07-13 12:36 | RADIOLOGY REPORT (SQ) ---
EXAM DESCRIPTION: CHEST 2 VIEWS COMPLETED DATE/TIME: 07/13/2018 11:18 am REASON FOR STUDY: chf COMPARISON: 07/11/2018 EXAM PARAMETERS: NUMBER OF VIEWS: two views TECHNIQUE: Digital Frontal and Lateral radiographic views of the chest acquired. RADIATION DOSE: NA LIMITATIONS: none FINDINGS: LUNGS AND PLEURA: Persistent right pleural effusion although smaller. Improved aeration o f the right lung base. Left lung remains clear. MEDIASTINUM AND HILAR STRUCTURES: No masses or contour abnormalities. HEART AND VASCULAR STRUCTURES: Vascular congestion slightly improved. BONES: No acute findings. HARDWARE: None in the chest. OTHER: No other significant finding. IMPRESSION: Slightly improved vascular congestion. Persistent small right pleural effusion with improvement in the right basilar opacities. TECHNICAL DOCUMENTATION: JOB ID: [id number] [employer]- All Rights Reserved Reading location - IP/workstation name: [email or web address]
--- NOTE | 2018-07-13 15:04 | Progress Note ---
Provider Note Provider Note: CARDIOLOGY PROGRESS NOTE by Dr. Norma Hernandez on 07/13/2018. SUBJECTIVE: The patient feels much better. She states she has no orthopnea present. She has only trace leg edema. There is no PND. There is no chest pain discomfort. There is no palpitations. The patient does have a cough with she is productive very scanty mucoid sputum. There is no wheezing. There is no arrhythmia seen on the monitor. There is no TIA CVA symptoms. She states she had a good night sleep and felt very rested. PHYSICAL EXAMINATION: The patient is mildly overweight. She is well-groomed. In no acute distress. Selected Entries 07/13/18 11:06 Temperature 98.0 F Temperature Oral Source Pulse Rate 89 Respiratory 18 Rate Blood Pressure 140/83 H Blood Pressure 102 Mean BP Location Right Arm BP Position Supine O2 Sat by Pulse 100 Oximetry Oxygen Delivery Room Air Method HEAD: Is atraumatic normocephalic. EYES: Pupils equal round regular reactive to light and accommodation. Extraocular movements are normal. There is no conjunctival pallor. There is no scleral icterus. EARS: Tympanic membranes are not intact. External canals are clear. NOSE: There is no deviated nasal septum. There is no inflammation of the nasal mucous membrane. MOUTH: There is no ulcers in the mouth. There is no bleeding from the gums. Mucous membranes of mouth are moist tongue is moist. THROAT: There is no redness of the oropharynx. There is no exudates. SKIN: There is no skin rashes skin lesions. There is no particular ecchymosis. NECK: Is supple. There is no JVD present. Carotids are equal there is no bruits. There is no lymphadenopathy. There is no goiter. There is no accessory muscle respiration use. Trachea central. LUNGS: Shows bibasilar fine bilateral rales of CHF. There is no chest wall tenderness. There is no rhonchi or wheezing. HEART: S1-S2 is heard. There is no S3 gallop. There is no S4 gallop. There is murmur of mitral regurgitation and tricuspid regurgitation present. There is no rub. ABDOMEN: Is soft. Nontender. There is no hepatosplenomegaly. Bowel sounds are well heard. There is no tender areas masses. EXTREMITIES: Femorals are diminished there is no femoral bruits leg pulses are diminished. There is trace edema bilaterally. There is no DVT is cellulitis. There is no cyanosis or clubbing. There is no calf tenderness. [employer] REPRESENTATIVE: The patient is conscious awake alert oriented x3 with no focal deficits. PSYCHIATRIC: The patient judgment insight are intact her affect is normal Labs- All tests 24 hr 07/12/18 07/12/18 07/13/18 18:56 19:03 01:07 Sodium Potassium Chloride Carbon Dioxide Anion Gap BUN Creatinine Est GFR ( Amer) Est GFR (Non-Af Amer) Glucose Calcium Creatine Kinase 82 81 CK-MB (CK-2) 0.69 Troponin I 0.017 Triglycerides Cholesterol LDL Cholesterol Direct VLDL Cholesterol HDL Cholesterol 07/13/18 07/13/18 07/13/18 01:07 06:15 06:15 Sodium 144.7 Potassium 3.5 L Chloride 107 Carbon Dioxide 27 Anion Gap 11 BUN 15 Creatinine 0.67 Est GFR ( Amer) > 60 Est GFR (Non-Af Amer) > 60 Glucose 134 H Calcium 9.8 Creatine Kinase CK-MB (CK-2) 0.63 Troponin I 0.016 Triglycerides 86 Cholesterol 212.71 H LDL Cholesterol Direct 132 H VLDL Cholesterol 17.0 HDL Cholesterol 57 Chest X-Ray 07/11/18 22:02 IMPRESSION: Above findings are compatible with cardiac decompensation/pulmonary edema. Recommend follow-up. Venous Doppler Study 07/12/18 00:00 IMPRESSION: NO EVIDENCE DVT OR SVT IN EITHER LEG. 4.5 cm popliteal cyst. Chest/Abdomen CTA 07/12/18 03:38 IMPRESSION: No aortic dissection or aneurysm. No pulmonary embolus. Pleural effusions with cardiomegaly and pulmonary edema. Chest X-Ray 07/13/18 00:00 IMPRESSION: Slightly improved vascular congestion. Persistent small right pleural effusion with improvement in the right basilar opacities. IMPRESSIONS/RECOMMENDATION: 1. Acute biventricular systolic heart failure.: [Acute systolic left ventricular and right ventricular failure]. Most likely this is due to uncontrolled hypertension due to the patient being noncompliant with medication and not taking it. Continue Lasix but will watch for recurrent hypokalemia. We will decrease the patient's Lasix. Will increase the patient's metoprolol. Continue the patient's MATTHEW inhibitor. Later we will get an echocardiogram to assess left ventricular rate regular ejection fractions and valvular disease. Note the lateral view of the chest x-ray suggest also right ventricular enlargement. Would recommend that the patient's echo and stress test be done as an outpatient. Will discuss with attending physician. 2. Hypertension not very well controlled: History of the patient having stopped antihypertensives about 4 months ago. Hence resumed the patient's antihypertensive medication. 3. Hypokalemia: Replace patient potassium on this has been done 4. Symptoms of and some clinical findings of obstructive sleep apnea on exam. Would recommend outpatient sleep study. In the meantime would use empiric BiPAP therapy at night 5. Hyperlipidemia: We will start the patient on statin. 6. Systolic murmur: Most likely has significant mitral and tricuspid regurgitation. This may be a manifestation of untreated blood pressure. Importance of compliance with the taking blood pressure medications regularly discussed with the patient. The risks of congestive heart failure, arrhythmia, myocardial infarction, stroke, and even sudden have been discussed with the patient detail if blood pressure has untreated. Medications reviewed medications added. Management plan, as plan above, discussed with Dr. Trent. Medical decision making is at present of high complexity. Will follow
[2018-07-13] MEDS ORDERED: POTASSIUM CHLORIDE 20 MEQ PACKET PO ONE (15:05)
[2018-07-13] MEDS: ATORVASTATIN CALCIUM 20 MG TABLET PO SCH (21:39)
[2018-07-13] MEDS ORDERED: ATORVASTATIN CALCIUM 40 MG TABLET PO SCH (22:00)
[2018-07-14 06:42] LABS: ABSOLUTE EOSINOPHILS # (AUTO) 0.1 10^3/uL (0.0-0.6); ABSOLUTE LYMPHOCYTES (AUTO) 1.4 10^3/uL (0.5-4.7); ABSOLUTE MONOCYTES (AUTO) 0.3 10^3/uL (0.1-1.4); ABSOLUTE NEUT (AUTO) 3.2 10^3/uL (1.7-8.2); BASOPHILS % (AUTO) 0.3 % (0-2); EOSINOPHILS % (AUTO) 2.1 % (0-6); HEMATOCRIT 34.5 % (36.0-47.0); HEMOGLOBIN 11.2 g/dL (12.0-15.5); LYMPHOCYTES % (AUTO) 27.5 % (13-45); MEAN CORPUSCULAR HEMOGLOBIN 25.3 pg (27.0-33.4); MEAN CORPUSCULAR HGB CONC 32.4 g/dL (32.0-36.0); MEAN CORPUSCULAR VOLUME 78 fl (80-97); MONOCYTES % (AUTO) 5.8 % (3-13); PLATELET COUNT 262 10^3/uL (150-450); RED BLOOD COUNT 4.43 10^6/uL (3.72-5.28); RED CELL DISTRIBUTION WIDTH 15.4 % (11.5-14.0); SEGMENTED NEUTROPHILS % (AUTO) 64.3 % (42-78); TOTAL CELLS COUNTED % (AUTO) 100 %; WHITE BLOOD COUNT 5.1 10^3/uL (4.0-10.5)
[2018-07-14 07:00] LABS: ANION GAP 9 (5-19); BLOOD UREA NITROGEN 16 mg/dL (7-20); CALCIUM 9.9 mg/dL (8.4-10.2); CARBON DIOXIDE 30 mmol/L (22-30); CHLORIDE 107 mmol/L (98-107); GLUCOSE 123 mg/dL (75-110); POTASSIUM 4.1 mmol/L (3.6-5.0); SODIUM 146.3 mmol/L (137-145)
[2018-07-14] MEDS: METOPROLOL SUCCINATE 25 MG TAB.SR.24H PO SCH ×2 (09:54→21:49)
[2018-07-14] MEDS: VALSARTAN 80 MG TABLET PO SCH ×2 (09:55→21:49)
[2018-07-14] MEDS: ENOXAPARIN SODIUM INJ 40 MG/0.4 ML DISP.SYRIN SUBCUT SCH (09:56)
[2018-07-14] MEDS: FUROSEMIDE INJ/PF 20 MG/2 ML SDV IV SCH (09:56)
--- NOTE | 2018-07-14 16:06 | RADIOLOGY REPORT (SQ) ---
EXAM DESCRIPTION: CHEST 2 VIEWS COMPLETED DATE/TIME: 07/14/2018 3:33 pm REASON FOR STUDY: CHF(pa Lat)May go down without monitor or Nurse COMPARISON: 07/13/2018 EXAM PARAMETERS: NUMBER OF VIEWS: two views TECHNIQUE: Digital Frontal and Lateral radiographic views of the chest acquired. RADIATION DOSE: NA LIMITATIONS: none FINDINGS: LUNGS AND PLEURA: Persistent right pleural effusion and atelectasis right lower lung, unc hanged findings. Very small left pleural effusion suggested. Mild prominence of the interstitial ma rkings, may represent edema. No pneumothorax. MEDIASTINUM AND HILAR STRUCTURES: No masses or contour abnormalities. HEART AND VASCULAR STRUCTURES: Stable appearance. Mild vascular congestion unchanged finding. BONES: The osseous structures are stable in appearance. HARDWARE: None in the chest. OTHER: No other significant finding. IMPRESSION: 1. No significant interval changes since the prior examination performed earlier on 07/13. The constellation of findings as above suggest CHF. Right lower lung atelectasis is also not ed. TECHNICAL DOCUMENTATION: JOB ID: [id number] [employer]- All Rights Reserved Reading location - IP/workstation name: [email or web address]
--- NOTE | 2018-07-14 19:17 | PDOC PROGRESS REPORT ---
Subjective Progress Note for:: 07/14/18 Subjective:: tyson reported noncompliance with her medication for about 1 month prior to presentation for chf. She described worsening bilateral pedal edema, orthopnea and PND prior to presentation. Presently her breathing is much better. She denied chest pain or palpitation. No nausea, vomiting, or abdominal pain. Reason For Visit: SHORTNESS OF BREATH Physical Exam Vital Signs: Temp Pulse Resp BP Pulse Ox 97.9 F 83 24 H 128/86 H 96 07/14/18 03:50 07/14/18 03:50 07/14/18 03:50 07/14/18 03:50 07/14/18 03:50 Intake & Output 07/13/18 07/14/18 07/15/18 06:59 06:59 06:59 Intake Total 722 978 Balance 722 978 Weight 77.3 kg 76.9 kg General appearance: PRESENT: no acute distress, well-developed, well-nourished Head exam: PRESENT: atraumatic, normocephalic Eye exam: PRESENT: conjunctiva pink, EOMI, PERRLA. ABSENT: scleral icterus Ear exam: PRESENT: normal external ear exam Mouth exam: PRESENT: moist Respiratory exam: PRESENT: clear to auscultation rafaela, decreased breath sounds Cardiovascular exam: PRESENT: RRR. ABSENT: diastolic murmur, rubs, systolic murmur Vascular exam: ABSENT: pallor GI/Abdominal exam: PRESENT: normal bowel sounds, soft. ABSENT: distended, guarding, mass, organolmegaly, rebound, tenderness Extremities exam: PRESENT: pedal edema - 1+, comparatively left >> right Musculoskeletal exam: PRESENT: deformity - related to arthritis Neurological exam: PRESENT: alert, awake, oriented to person, oriented to place, oriented to time, oriented to situation, CN II-XII grossly intact. ABSENT: motor sensory deficit Psychiatric exam: PRESENT: appropriate affect, normal mood. ABSENT: homicidal ideation, suicidal ideation Skin exam: PRESENT: dry, warm Results Laboratory Results: 07/14/18 05:50 07/14/18 05:50 07/13/18 07/14/18 07/14/18 06:15 05:50 05:50 WBC 5.1 RBC 4.43 Hgb 11.2 L Hct 34.5 L MCV 78 L MCH 25.3 L MCHC 32.4 RDW 15.4 H Plt Count 262 Seg Neutrophils % 64.3 Lymphocytes % 27.5 Monocytes % 5.8 Eosinophils % 2.1 Basophils % 0.3 Absolute Neutrophils 3.2 Absolute Lymphocytes 1.4 Absolute Monocytes 0.3 Absolute Eosinophils 0.1 Absolute Basophils 0.0 Sodium 144.7 146.3 H Potassium 3.5 L 4.1 Chloride 107 107 Carbon Dioxide 27 30 Anion Gap 11 9 BUN 15 16 Creatinine 0.67 0.72 Est GFR ( Amer) > 60 > 60 Est GFR (Non-Af Amer) > 60 > 60 Glucose 134 H 123 H Calcium 9.8 9.9 07/11/18 23:04 Clean Catch Midstream Urine Culture - Final Mixed Urogenital Leslie 07/11/18 07/12/18 07/12/18 23:04 04:05 11:42 Creatine Kinase 73 CK-MB (CK-2) Troponin I 0.018 0.012 NT-Pro-B Natriuret Pep 5300 H 07/12/18 07/12/18 07/12/18 11:42 18:56 19:03 Creatine Kinase 82 CK-MB (CK-2) 0.64 0.69 Troponin I 0.015 0.017 NT-Pro-B Natriuret Pep 07/13/18 07/13/18 01:07 01:07 Creatine Kinase 81 CK-MB (CK-2) 0.63 Troponin I 0.016 NT-Pro-B Natriuret Pep Impressions: Venous Doppler Study 07/12/18 00:00 IMPRESSION: NO EVIDENCE DVT OR SVT IN EITHER LEG. 4.5 cm popliteal cyst. Chest/Abdomen CTA 07/12/18 03:38 IMPRESSION: No aortic dissection or aneurysm. No pulmonary embolus. Pleural effusions with cardiomegaly and pulmonary edema. Chest X-Ray 07/13/18 00:00 IMPRESSION: Slightly improved vascular congestion. Persistent small right pleural effusion with improvement in the right basilar opacities. Assessment & Plan - Diagnosis (1) Acute CHF (congestive heart failure) Qualifiers: Heart failure type: unspecified Qualified Code(s): I50.9 - Heart failure, unspecified Is this a current diagnosis for this admission?: Yes Plan: Continue current medication management. Obtain complete echocardiogram. (2) Hypertension Qualifiers: Hypertension type: essential hypertension Qualified Code(s): I10 - Ess ential (primary) hypertension Is this a current diagnosis for this admission?: Yes Plan: Continue current medication management. (3) Hyperlipidemia Qualifiers: Hyperlipidemia type: pure hyperglyceridemia Qualified Code(s): E78.1 - Pure hyperglyceridemia Is this a current diagnosis for this admission?: Yes Plan: Continue Atorvastatin therapy. (4) Microcytic anemia Is this a current diagnosis for this admission?: Yes Plan: Obtain stool guiac test x 3 and anemia workup. - Time Time Spent with patient: 25-34 minutes Medications reviewed and adjusted accordingly: Yes Anticipated discharge: Home with Homehealth Within: Other - Inpatient Certification Based on my medical assessment, after consideration of the patient's comorbidities, presenting symptoms, or acuity I expect that the services needed warrant INPATIENT care.: Yes I certify that my determination is in accordance with my understanding of Medicare's requirements for reasonable and necessary INPATIENT services [42 CFR 412.3e].: Yes Medical Necessity: Significant Comorbidiites Make Outpatient Treatment Too Risky, Need Close Monitoring Due to Risk of Patient Decompensation, Need For Continuous Telemetry Monitoring, Risk of Complication if Not Cared For in Hospital, Risk of Diagnosis Which Will Require Inpatient Eval/Care/Monitoring Post Hospital Care: D/C Vp Strategy Documentation - Plan Summary Plan Summary: Continue current medication management. Obtain HgbA1c level, complete echocardiogram.
[2018-07-14] MEDS: ATORVASTATIN CALCIUM 20 MG TABLET PO SCH (21:49)
--- NOTE | 2018-07-15 00:19 | Progress Note ---
Provider Note Provider Note: CARDIOLOGY progress NOTE by Dr. Norma Hernandez on 07/14/2018. SUBJECTIVE: The patient denies any shortness of breath. There is no PND orthopnea. There is no leg edema. There is no cough or sputum production. There is no arrhythmia seen on the monitor. There is no TIA CVA symptoms. PHYSICAL EXAMINATION: The patient is slightly overweight. She is well-groomed. In no acute distress. Selected Entries 07/14/18 07/14/18 07/14/18 08:12 10:00 12:23 Temperature 98.1 F 98.1 F Temperature Oral Oral Source Pulse Rate 95 86 Respiratory 20 16 Rate Blood Pressure 124/73 103/61 Blood Pressure 90 75 Mean BP Location Right Arm Right Arm BP Position Supine Sitting O2 Sat by Pulse 92 97 Oximetry Oxygen Delivery Room Air Method ( includes room air) Oxygen Delivery Room Air Method HEAD: Is atraumatic normocephalic. EYES: Pupils equal round regular reactive to light and accommodation. Extraocular movements are normal. There is no conjunctival pallor. There is no scleral icterus. EARS: Tympanic membranes are not intact. External canals are clear. NOSE: There is no deviated nasal septum. There is no inflammation of the nasal mucous membrane. MOUTH: There is no ulcers in the mouth. There is no bleeding from the gums. Mucous membranes of mouth are moist tongue is moist. THROAT: There is no redness of the oropharynx. There is no exudates. SKIN: There is no skin rashes skin lesions. There is no particular ecchymosis. NECK: Is supple. There is no JVD present. Carotids are equal there is no bruits. There is no lymphadenopathy. There is no goiter. There is no accessory muscle respiration use. Trachea central. LUNGS: Shows bibasilar fine bilateral rales of CHF. There is no chest wall tenderness. There is no rhonchi or wheezing. HEART: S1-S2 is heard. There is no S3 gallop. There is no S4 gallop. There is murmur of mitral regurgitation and tricuspid regurgitation present. There is no rub. ABDOMEN: Is soft. Nontender. There is no hepatosplenomegaly. Bowel sounds are well heard. There is no tender areas masses. EXTREMITIES: Femorals are diminished there is no femoral bruits leg pulses are diminished. There is trace edema bilaterally. There is no DVT is cellulitis. There is no cyanosis or clubbing. There is no calf tenderness. GRE[employer] CH[employer] MARKER: The patient is conscious awake alert oriented x3 with no focal deficits. PSYCHIATRIC: The patient judgment insight are intact her affect is normal Labs- All tests 24 hr 07/14/18 07/14/18 05:50 05:50 WBC 5.1 RBC 4.43 Hgb 11.2 L Hct 34.5 L MCV 78 L MCH 25.3 L MCHC 32.4 RDW 15.4 H Plt Count 262 Seg Neutrophils % 64.3 Lymphocytes % 27.5 Monocytes % 5.8 Eosinophils % 2.1 Basophils % 0.3 Absolute Neutrophils 3.2 Absolute Lymphocytes 1.4 Absolute Monocytes 0.3 Absolute Eosinophils 0.1 Absolute Basophils 0.0 Sodium 146.3 H Potassium 4.1 Chloride 107 Carbon Dioxide 30 Anion Gap 9 BUN 16 Creatinine 0.72 Est GFR ( Amer) > 60 Est GFR (Non-Af Amer) > 60 Glucose 123 H Calcium 9.9 Chest X-Ray 07/11/18 22:02 IMPRESSION: Above findings are compatible with cardiac decompensation/pulmonary edema. Recommend follow-up. Venous Doppler Study 07/12/18 00:00 IMPRESSION: NO EVIDENCE DVT OR SVT IN EITHER LEG. 4.5 cm popliteal cyst. Chest/Abdomen CTA 07/12/18 03:38 IMPRESSION: No aortic dissection or aneurysm. No pulmonary embolus. Pleural effusions with cardiomegaly and pulmonary edema. Chest X-Ray 07/13/18 00:00 IMPRESSION: Slightly improved vascular congestion. Persistent small right pleural effusion with improvement in the right basilar opacities. Chest X-Ray 07/14/18 00:00 IMPRESSION: 1. No significant interval changes since the prior examination performed earlier on 07/13/2018. The constellation of findings as above suggest CHF. Right lower lung atelectasis is also noted. My interpretation is that there is significant improvement in the CHF. There is still right ventricular enlargement on the lateral view. There is no accurate intake output recorded. But the patient states she is urinating well. 1. Acute biventricular systolic heart failure.: [Acute systolic left ventricular and right ventricular failure]. Most likely this is due to uncontrolled hypertension due to the patient being noncomIMPRESSIONS/RECOMMENDATION: pliant with medication and not taking it,At present acuity has resolved.. Will change to PO lasix.Continue betablocker and ACEI.As outpatient will get an echo to assess left ventricular rate regular ejection fractions and valvular disease. Note the lateral view of the chest x-ray suggest also right ventricular enlargement. Would recommend that the patient's echo and stress test be done as an outpatient. Will discuss with attending physician. 2. Hypertension now very well controlled: History of the patient having stopped antihypertensives about 4 months ago. Hence resumed the patient's antihypertensive medication. 3. Hypokalemia: Resolved 4. Symptoms of and some clinical findings of obstructive sleep apnea on exam. Would recommend outpatient sleep study. 5. Hyperlipidemia: Will continue the patient on statin. 6. Systolic murmur: Most likely has significant mitral and tricuspid regurgitation. This may be a manifestation of untreated blood pressure. Medications reviewed. Management plan discussed with the attending physician on the case. Medical decision making is of moderate complexity. 40 minutes spent on this patient with more than 50% time spent direct patient care. Cardiac Status is stable.Will sign off and follow patient in the office..
[2018-07-15 06:52] LABS: ABSOLUTE EOSINOPHILS # (AUTO) 0.1 10^3/uL (0.0-0.6); ABSOLUTE LYMPHOCYTES (AUTO) 1.6 10^3/uL (0.5-4.7); ABSOLUTE MONOCYTES (AUTO) 0.3 10^3/uL (0.1-1.4); ABSOLUTE NEUT (AUTO) 2.8 10^3/uL (1.7-8.2); ABSOLUTE RETICS # 0.072 10^6/uL (0.028-0.122); BASOPHILS % (AUTO) 0.4 % (0-2); HEMATOCRIT 34.3 % (36.0-47.0); HEMOGLOBIN 11.1 g/dL (12.0-15.5); LYMPHOCYTES % (AUTO) 32.4 % (13-45); MEAN CORPUSCULAR HEMOGLOBIN 25.2 pg (27.0-33.4); MEAN CORPUSCULAR HGB CONC 32.3 g/dL (32.0-36.0); MEAN CORPUSCULAR VOLUME 78 fl (80-97); MONOCYTES % (AUTO) 6.3 % (3-13); PLATELET COUNT 260 10^3/uL (150-450); RED CELL DISTRIBUTION WIDTH 15.3 % (11.5-14.0); RETICULOCYTE COUNT (AUTO) 1.63 % (0.66-2.85); SEGMENTED NEUTROPHILS % (AUTO) 58.9 % (42-78); TOTAL CELLS COUNTED % (AUTO) 100 %; WHITE BLOOD COUNT 4.8 10^3/uL (4.0-10.5)
[2018-07-15 07:19] LABS: ANION GAP 8 (5-19); BLOOD UREA NITROGEN 19 mg/dL (7-20); CALCIUM 9.7 mg/dL (8.4-10.2); CARBON DIOXIDE 30 mmol/L (22-30); CHLORIDE 107 mmol/L (98-107); GLUCOSE 124 mg/dL (75-110); IRON(TIBC) 42.8 ug/dL (37-170); POTASSIUM 3.8 mmol/L (3.6-5.0); SODIUM 145.2 mmol/L (137-145)
[2018-07-15 08:24] LABS: FOLATE 6.74 ng/mL (>2.76)
[2018-07-15] MEDS: VALSARTAN 80 MG TABLET PO SCH (09:32)
[2018-07-15] MEDS: METOPROLOL SUCCINATE 25 MG TAB.SR.24H PO SCH (09:32)
[2018-07-15] MEDS: ENOXAPARIN SODIUM INJ 40 MG/0.4 ML DISP.SYRIN SUBCUT SCH (09:32)
[2018-07-15] MEDS ORDERED: FUROSEMIDE 20 MG TABLET PO SCH (10:00)
[2018-07-15 19:49] VITALS: BP 139/92
--- NOTE | 2018-07-15 20:04 | PDOC DISCHARGE SUMMARY ---
General - Admit/Disc Date/PCP Admission Date/Primary Care Provider: 07/12/18 06:18 SUMMER MERINO MD Discharge Date: 07/15/18 - Discharge Diagnosis (1) Acute CHF (congestive heart failure) Is this a current diagnosis for this admission?: Yes (2) Hypertension Is this a current diagnosis for this admission?: Yes (3) Hyperlipidemia Is this a current diagnosis for this admission?: Yes (4) Microcytic anemia Is this a current diagnosis for this admission?: Yes - Additional Information Resuscitation Status: Full Code Discharge Diet: Cardiac Discharge Activity: Activity As Tolerated, Balance Activity w/Rest, Weigh Daily Prescriptions: Atorvastatin Calcium [Lipitor 20 mg Tablet] 20 mg PO QHS #30 tablet Furosemide [Lasix 20 mg Tablet] 20 mg PO DAILY #30 tablet Metoprolol Succinate [Toprol Xl 25 mg Tab.sr] 50 mg PO Q12 #60 tab.sr.24h Valsartan [Diovan 80 mg Tablet] 80 mg PO Q12 #60 tablet Home Medications: Atorvastatin Calcium [Lipitor 20 mg Tablet] 20 mg PO QHS #30 tablet 07/15/18 Furosemide [Lasix 20 mg Tablet] 20 mg PO DAILY #30 tablet 07/15/18 Metoprolol Succinate [Toprol Xl 25 mg Tab.sr] 50 mg PO Q12 #60 tab.sr.24h 07/15/18 Valsartan [Diovan 80 mg Tablet] 80 mg PO Q12 #60 tablet 07/15/18 History of Present Illness Patient complains of: Feet swelling and shortness of breath History of Present Illness: ALBINA FRANK is a 73 year old female This is a 73-year-old female patient of Dr. Merino with history of hypertension's noncompliance not taking the medications put him almost 2 months came to the emergency department with increasing shortness of breath patient laid down since last 1 or 2 weeks and also increasing the leg swellings Patient is denied any history of heart disease Patients denied any other medical problems except for high blood pressure In the emergency department patient initial work-up was all stable except the NT BNP was 5000 Patient's potassium was low patient underwent for the CT angiogram which did not show any acute PE but supposed to pulmonary edema cardiomegaly Patient was given IV Lasix When I saw the patient's feel better patient denied any chest pain Hospital Course Hospital Course: She was admitted as case of biventricular systolic congestive heart failure and managed with IV furosemide.She was restarted on her medication including Valsartan and Metoprolol. She remain on Atorvastatin therapy for hyperlipidemia. She was eventually transition to oral Furosemide therapy with resolution of her symptoms. She will benefit from outpatient sleep study for further evaluation of her possible sleep apnea problem. She will follow up as instructed upon discharge. Physical Exam Vital Signs: Temp Pulse Resp BP Pulse Ox 98.0 F 78 16 110/68 100 07/15/18 15:19 07/15/18 19:00 07/15/18 15:19 07/15/18 15:19 07/15/18 15:19 Intake & Output 07/14/18 07/15/18 07/16/18 06:59 06:59 06:59 Intake Total 978 1080 737 Output Total 0 Balance 978 1080 737 Weight 76.9 kg 75 kg Physical Exam: General appearance: PRESENT: no acute distress, well-developed, well-nourished Head exam: PRESENT: atraumatic, normocephalic Eye exam: PRESENT: conjunctiva pink, EOMI, PERRLA. ABSENT: pallor, scleral icterus Ear exam: PRESENT: normal external ear exam Mouth exam: PRESENT: moist Respiratory exam: PRESENT: clear to auscultation rafaela, decreased breath sounds Cardiovascular exam: PRESENT: RRR systolic murmur, grade 3/6. ABSENT: diastolic murmur, rubs GI/Abdominal exam: PRESENT: normal bowel sounds, soft. ABSENT: distended, guarding, mass, organomegaly, rebound, tenderness Extremities exam: PRESENT: improved pedal edema Musculoskeletal exam: PRESENT: deformity - related to arthritis Neurological exam: PRESENT: alert, awake, oriented to person, oriented to place, oriented to time, oriented to situation, CN II-XII grossly intact. ABSENT: m otor sensory deficit Psychiatric exam: PRESENT: appropriate affect, normal mood. ABSENT: homicidal ideation, suicidal ideation Skin exam: PRESENT: dry, warm Results Laboratory Results: 07/15/18 05:55 07/15/18 05:55 07/15/18 07/15/18 05:55 05:55 WBC 4.8 RBC 4.40 Hgb 11.1 L Hct 34.3 L MCV 78 L MCH 25.2 L MCHC 32.3 RDW 15.3 H Plt Count 260 Seg Neutrophils % 58.9 Lymphocytes % 32.4 Monocytes % 6.3 Eosinophils % 2.0 Basophils % 0.4 Absolute Neutrophils 2.8 Absolute Lymphocytes 1.6 Absolute Monocytes 0.3 Absolute Eosinophils 0.1 Absolute Basophils 0.0 Retic Count (auto) 1.63 Absolute Retic 0.072 Sodium 145.2 H Potassium 3.8 Chloride 107 Carbon Dioxide 30 Anion Gap 8 BUN 19 Creatinine 0.71 Est GFR ( Amer) > 60 Est GFR (Non-Af Amer) > 60 Glucose 124 H Calcium 9.7 Iron 42.8 TIBC 251 % Saturation 17 Ferritin 185.00 Vitamin B12 244.0 Folate 6.74 07/11/18 07/12/18 07/12/18 23:04 04:05 11:42 Creatine Kinase 73 CK-MB (CK-2) Troponin I 0.018 0.012 NT-Pro-B Natriuret Pep 5300 H 07/12/18 07/12/18 07/12/18 11:42 18:56 19:03 Creatine Kinase 82 CK-MB (CK-2) 0.64 0.69 Troponin I 0.015 0.017 NT-Pro-B Natriuret Pep 07/13/18 07/13/18 01:07 01:07 Creatine Kinase 81 CK-MB (CK-2) 0.63 Troponin I 0.016 NT-Pro-B Natriuret Pep Impressions: Venous Doppler Study 07/12/18 00:00 IMPRESSION: NO EVIDENCE DVT OR SVT IN EITHER LEG. 4.5 cm popliteal cyst. Chest/Abdomen CTA 07/12/18 03:38 IMPRESSION: No aortic dissection or aneurysm. No pulmonary embolus. Pleural effusions with cardiomegaly and pulmonary edema. Chest X-Ray 07/14/18 00:00 IMPRESSION: 1. No significant interval changes since the prior examination performed earlier on 07/13/2018. The constellation of findings as above suggest CHF. Right lower lung atelectasis is also noted. Qualifiers - * PATIENT BEING DISCHARGED WITH ANY OF THE FOLLOWING DIAGNOSIS: No Acute Heart Failure Is this a Heart Failure Patient?: Yes Documentation of LVEF assessment?: Planned for after discharge d) Discharged on evidence-based Beta tanya(carvedilol, sustained release metoprolol succinate, or bisoprolol)?: Yes 3. Anticoagulant therapy for permanect/persistent/paraoxysmal Afib or Aflutter: N/A Follow-up Appointment scheduled within 7 days?: Yes Plan Discharge Plan: D/C home today. Follow up in the office as instructed upon discharge.
== END 2018-07-15 20:20 | disposition home or self-care (01) | DRG 291 ==
LOC: ER 20:17 → EH 07-12 06:18 → 3S 07-12 07:40
PROVIDERS: ADMIT Internal Medicine Geriatric Medicine; ATTEND Internal Medicine Geriatric Medicine
DX: I11.0 Hypertensive heart disease with heart failure (principal); J81.0 Acute pulmonary edema; I50.21 Acute systolic (congestive) heart failure; I50.82 Biventricular heart failure; I08.1 Rheumatic disorders of both mitral and tricuspid valves; E87.6 Hypokalemia; D50.9 Iron deficiency anemia, unspecified; M79.89 Other specified soft tissue disorders; Z91.14 Patient's other noncompliance with medication regimen
CPT/HCPCS: 36415; 71046; 71275; 80048; 80053; 80061; 81001; 82272; 82550; 82553; 82607; 82728; 82746; 83540; 83550; 83735; 83880; 84443; 84484; 85025; 85045; 85379; 87086; 93005; 93010; 93970; 96374; 99285; J1650; J1940; J3490

== ENCOUNTER → 2019-01-29 | Outpatient (CLI) | payer MEDICARE ==
--- NOTE | 2019-01-30 08:14 | WOMENS IMAGING REPORT ---
EXAM DESCRIPTION: 3D SCREENING MAMMO BILAT COMPLETED DATE/TIME: 01/29/2019 11:10 am REASON FOR STUDY: Z12.31 SCREENING [id number] SCREEN MAMMOGRAM FOR MALIGNANT NEOPLASM OF BR E COMPARISON: 2009, 2014 EXAM PARAMETERS: Standard craniocaudal and mediolateral oblique views of each breast recorded using digital acquisition. Read with the assistance of CAD. .[facility] - [employer] Version 9.2 LIMITATIONS: None. FINDINGS: RIGHT BREAST MASSES: No suspicious masses. CALCIFICATIONS: No new or suspicious calcifications. ARCHITECTURAL DISTORTION: None. ASYMMETRY: None noted. OTHER: Developing density right breast MLO view only, 5 cm from the nipple for which additional right breast 90 mediolateral view, cone compression MLO view, exaggerated craniocaudad view recommended. If this finding persists, then ultrasound would be required for followup LEFT BREAST MASSES: No suspicious masses. CALCIFICATIONS: No new or suspicious calcifications. ARCHITECTURAL DISTORTION: None. ASYMMETRY: None noted. OTHER: No other significant findings. IMPRESSION: No mammographic/ tomosynthesis evidence of malignancy left breast. Developing density right breast MLO view only for which additional diagnostic mammograms and ultrasou nd are recommended 0 Incomplete: Needs Additional Imaging Evaluation and/or prior Mammograms for Comparison. BREAST DENSITY: b. There are scattered areas of fibroglandular density. BIRAD: ASSESSMENT: 0 Incomplete: Needs Additional Imaging Evaluation and/or prior Mammograms for C omparison. RECOMMENDATION: RECOMMENDED FOLLOW-UP: Right breast diagnostic mammograms and ultrasound The patient will be contacted for additional imaging. COMMENT: The patient has been notified of the results by letter per MQSA requirements. Additional no tification policies are in place for contacting patient with suspicious or incomplete findings. Quality ID #[id number]: The [employer] recommends an annual screening mammogram for women aged 40 years or over. This facility utilizes a reminder system to ensure that all patients receive reminder letters, and/or direct phone calls for appointments. This includes reminders for routine scr eening mammograms, diagnostic mammograms, or other Breast Imaging Interventions when appropriate. Th is patient will be placed in the appropriate reminder system. TECHNICAL DOCUMENTATION: FINDING NUMBER: (1) ASSESSMENT: (1) JOB ID: [id number] [employer]- All Rights Reserved Reading location - IP/workstation name: [email or web address]
== END ==
LOC: WI 10:15
PROVIDERS: ATTEND Internal Medicine Geriatric Medicine
DX: Z12.31 Encounter for screening mammogram for malignant neoplasm of breast (principal)
CPT/HCPCS: 77063; 77067